=== PATIENT | male | born 2000 | race Caucasian/White ===

== ENCOUNTER 2022-08-26 14:13 | Emergency (ER) | payer BC, SELFPAY ==
[2022-08-26 14:40] VITALS: BP 131/74; PULSE 72; RESP 16; TEMP 36.8; O2SAT 97; BMI 25.8
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
== END 2022-08-26 15:39 | disposition home or self-care (01) ==
PROVIDERS: Emergency Provider Emergency Medicine; PCP Family Medicine
DX: S09.90XA Unspecified injury of head, initial encounter (principal); V43.02XA Car driver injured in collision with other type car in nontraffic accident, initial encounter; Y04.2XXA Assault by strike against or bumped into by another person, initial encounter
CPT/HCPCS: 99282; 99283; 99284

== ENCOUNTER 2023-10-23 16:06 | Outpatient (CLI) | payer BC, SELFPAY ==
[2023-10-23 23:08] LABS: GC DNA Amplified* NOT DETECTED (No Detected)
[2023-10-23 23:17] LABS: Chlamydia DNA Amplified* DETECTED (No Detected)
== END 2023-10-23 16:07 | disposition home or self-care (01) ==
LOC: LKVREF 16:07
PROVIDERS: PCP Family Medicine; Visit Provider Physician Assistant
DX: R30.0 Dysuria (principal)
CPT/HCPCS: 87491; 87591

== ENCOUNTER 2023-11-26 15:40 | Outpatient (CLI) | payer BC, SELFPAY ==
[2023-11-26 23:09] LABS: Chlamydia DNA Amplified* NOT DETECTED (No Detected); GC DNA Amplified* NOT DETECTED (No Detected)
== END 2023-11-26 15:41 | disposition home or self-care (01) ==
LOC: LKVREF 15:40
PROVIDERS: PCP Family Medicine; Visit Provider Nurse Practitioner Family
DX: Z11.3 Encounter for screening for infections with a predominantly sexual mode of transmission (principal)
CPT/HCPCS: 87491; 87591